=== PATIENT | male | born 1975 | race Caucasian/White ===

== ENCOUNTER → 2018-05-24 13:57 | Outpatient (CLI) | payer OTHER, MEDICAID, SELFPAY ==
--- NOTE | 2018-05-24 | DI.ECHO.S_ITS ---
[place] +---------+ [facility] +---------+ : : [address] : [address] [place] : : : : [id number] : : : : Phone: [phone]+ Echocardiogram Report + + :Name: GARETH ROBBINS Study Date: 05/24/2018 Height: 68 in : :[facility] Exam Location: [place] Weight: 188 lb : : Gender: Male BSA: 2.0 m2 : :: 1975 Age: 42 yrs BP: 140/90 mmHg: :Reason For Study: Hypertension : :Ordering Physician: Emmy : :Helio Performed By: Stephanie Page : + + Interpretation Summary The left ventricle is normal in size. The ejection fraction is estimated to be 65-70%. The right ventricle is normal in size and function. No significant valvular pathology seen. Procedure: A two-dimensional transthoracic echocardiogram with color flow and Doppler was performed. The study quality was technically adequate. There is no prior echocardiogram noted for this patient. The patient was in normal sinus rhythm during the exam. Left Ventricle: There is borderline concentric left ventricular hypertrophy. The left ventricle is normal in size. Proximal septal thickening is noted. There is no echo evidence for significant left ventricular outflow tract obstruction. There is no thrombus. The ejection fraction is estimated to be 65-70%. Left ventricular wall motion is normal. MV E/A: 1.1 Med Peak E' Klaus: 7.7 cm/sec E/E' med: 9.8. Right Ventricle: The right ventricle is normal in size and function. Atria: The left atrium is mildly dilated. Right atrial size is normal. There is no Doppler evidence for an interatrial shunt. Mitral Valve: The mitral valve leaflets appear borderline thickened, but open well. There is trace mitral regurgitation. Aortic Valve: The aortic valve is trileaflet. The aortic valve opens well. There is no aortic valve stenosis. No aortic regurgitation is present. Tricuspid Valve: The tricuspid valve is normal in structure and function. Pulmonary artery pressures cannot be estimated because of the lack of a measurable TR jet velocity. There is trace tricuspid regurgitation. Pulmonic Valve: The pulmonic valve is not well visualized. There is trace pulmonic regurgitation. Great Vessels: The aortic root is normal size. The ascending aorta is normal in size. The aortic arch could not be visualized. The pulmonary artery is not well visualized, but is probably normal size. The IVC is dilated (diameter is greater than 2.1 cm) yet it collapses greater than 50% with a sniff. This suggests a right atrial pressure of 8 mm Hg. Pericardium/ Pleura There is no pericardial effusion. There is no pleural effusion. MMode/2D Measurements & Calculations LVIDd: 4.7 cm Ao root diam: 3.2 cm LVIDs: 3.4 cm asc Aorta Diam: 3.3 cm FS: 27.7 % EPSS: 0.74 cm IVSd: 1.1 cm LVPWd: 0.82 cm LV chavez. diameter/BSA (cm/m^2): 2.4 LV sys. diameter/BSA (cm/m^2): 1.7 LA A2 area: 23.6 cm2 RA long axis: 4.8 cm LA A4 area: 21.5 cm2 RA area: 16.0 cm2 LA length (vol): 5.7 cm RA vol: 45.2 ml LA vol: 75.6 ml RA : 22.7 ml/m2 LA vol index: 38.0 ml/m2 IVC diam: 2.2 cm RVD1 (basal): 3.8 cm Doppler Measurements & Calculations Ao V2 max: 155.3 cm/sec LVOT Max Klaus: 99.2 cm/sec Ao V2 mean: 111.5 cm/sec LV V1 max P.9 mmHg Ao max P.6 mmHg LV V1 VTI: 18.4 cm Ao mean P.4 mmHg sev ratio: 0.67 Ao V2 VTI: 27.6 cm MV E max klaus: 75.8 cm/sec PA V2 max: 122.6 cm/sec MV A max klaus: 70.2 cm/sec PA V2 mean: 91.8 cm/sec MV E/A: 1.1 PA mean P.6 mmHg Med Peak E' Klaus: 7.7 cm/sec PA Accel Time: 0.08 sec E/E' med: 9.8 Lat Peak E' Klaus: 12.9 cm/sec E/E' lat: 5.9 E/e' average: 7.8 MV dec time: 0.20 sec MV P1/2t: 53.0 msec MV P1/2t max klaus: 76.3 cm/sec MVA(P1/2t): 4.1 cm2 Reading Physician:VAL
== END ==
PROVIDERS: PCP Physician Assistant Medical; Visit Provider Internal Medicine Cardiovascular Disease
DX: I10 Essential (primary) hypertension (principal)
CPT/HCPCS: 93306